=== PATIENT | male | born 1975 | race Caucasian/White ===

== ENCOUNTER → 2018-11-07 08:03 | Outpatient (CLI) | payer BC, SELFPAY ==
[2018-11-07 07:54] VITALS: BMI 31.6
--- NOTE | 2018-11-07 08:06 | RAD_ITS ---
STUDY: X-RAY - RIGHT HAND REASON FOR EXAM: Male, 43 years old. Nail puncture at base of thumb. Soft tissue swelling. TECHNIQUE: 3 view(s) of the hand. COMPARISON: None. FINDINGS: Normal radiocarpal articulation. Normal distal radioulnar joint. Normal visualized carpal bones. Normal carpal articulations Normal carpometacarpal articulation of the thumb. Normal second through fifth carpometacarpal joints. Normal metacarpi. Normal metacarpophalangeal joint of the thumb. Normal interphalangeal joint of the thumb. Normal proximal and distal phalanges of the thumb. Normal metacarpophalangeal joints of the second through fifth fingers. Normal proximal and distal interphalangeal joints of the second through fifth fingers. Normal phalanges of the second through fifth fingers. Tiny radio opacities are seen in the soft tissues of the thenar space of the thumb just lateral to the first metacarpal head. These may represent tiny foreign bodies. RAD/Hand Min 3 Views IMPRESSION: Tiny radiopacity seen in the soft tissues overlying the ulnar aspect of the head of the first metacarpal. Electronically Signed: Franc Navarrete, at 8:49 EDT , Service support ,
== END ==
PROVIDERS: Family Provider Internal Medicine; PCP Internal Medicine; Referring Provider Physician Assistant; Visit Provider Physician Assistant
DX: S61.431A Puncture wound without foreign body of right hand, initial encounter (principal)
CPT/HCPCS: 73130

== ENCOUNTER 2024-02-04 19:57 | Emergency (ER) | payer BC, SELFPAY ==
[2024-02-04 19:58] VITALS: BP 134/91; PULSE 53; RESP 16; TEMP 37.2; O2SAT 97; BMI 29.2
--- NOTE | 2024-02-04 21:08 | ED.VIS.LOWEX ---
HPI History of Present Illness Chief Complaint: Wound Informant: patient Narrative Narrative: Patient is a 48-year-old male presenting with pain and swelling of his left anterior chan. He sustained an abrasion there yesterday but is not entirely sure why he has swelling of his left chan tonight. He just noticed pain there and looked down today and saw that was swollen. He notes that he was doing a lot of yard work yesterday but was just on the tractor today. He is not sure what his last tetanus was. Patient does have a history of varicose veins of his lower legs. He does not remember any direct trauma to his leg. He notes that his father did of blood clot in his leg that broke off and went to his heart. Patient himself denies any history of DVT or PE. No other complaints or concerns reported at this time. Does not take any medicine on a daily basis. Did not take any for pain prior to arrival. Tetanus Immunization: Unknown [facility] Medical History Back pain Chest pain Headache Home Medications ?Medication ?Instructions ?Recorded ?Last Taken ?Type ibuprofen 200 mg tablet 200 mg PO ONCE PRN 12/07/23 Unknown History Allergy/AdvReac Type Severity Reaction Status Date / Time No Known Allergies Allergy Verified 02/04/24 20:01 Family History Grandfather Cancer Other Heart disease Social History household members: spouse Smoking Status: Never smoker alcohol intake: never ROS ROS ED Constitutional Constitutional ED: Denies chills or fever(s) Cardiovascular Cardiovascular: Denies chest pain Respiratory/Chest Respiratory/Chest: Denies dyspnea Musculoskeletal Musculoskeletal: Reports other Details: Left chan pain Integumentary Reports Abrasions and other Details: Swelling of the left chan Neurologic Neurologic: Denies paresthesias or weakness Hematologic/Lymphatic Hematologic/Lymphatic: Denies easy bleeding or easy bruising EXAM Physical Exam Const Vital Signs: 02/04/24 19:58 02/04/24 21:20 Temperature 98.9 F 97.6 F L Temperature Source Temporal Pulse Rate 53 L 52 L Respiratory Rate 16 18 Blood Pressure 134/91 H 133/85 H Blood Pressure Mean 105 101 Pulse Ox 97 95 Oxygen Delivery Method Room Air Positive well nourished and well developed General Appearance ED: well developed and NAD HEENT normocephalic and atraumatic Resp normal respiratory effort Cardio regular rate and regular rhythm Extremity normal to inspection and full ROM Extremity Narrative: Patient has nonpulsatile area of swelling over the left anterior chan most consistent with a hematoma. No overlying erythema. There is to overlying linear superficial abrasions that are not actively bleeding. Patient does have varicose veins of the bilateral lower legs. Neuro oriented x3 Sensorium / Orientation: alert Motor Exam: Negative for general weakness Skin Skin Narrative: 2 linear, parallel, superficial abrasions approximately 6 cm in length. No active bleeding. MDM MDM MDM Narrative Medical decision making narrative: Patient is for painful swelling over his left chan. He appears nontoxic in no acute distress. Physical exam is most consistent with a hematoma. He does have an overlying abrasion to the area but I do not think that is related to the swelling. Patient does have some prominent varicose veins it is possible that he somehow ruptured varicose vein superficially and that is what causing the hematoma given his limited trauma/lack of trauma reported. He is neuro vastly intact distally with good pulses. He is otherwise well-appearing. He does not have any systemic symptoms. Bedside ultrasound placed over the swelling and does not show any pulsatile blood flow. I did also check in his popliteal region and I do not appreciate any DVT. Patient is counseled that it would be very unlikely for him to have a DVT present with swelling in the anterior leg. Patient is counseled on hematoma care including RICE therapy. He is given referral for vascular surgery for his varicose veins. Given return precautions. Discharged home in stable condition. Testing considered but not performed?x-ray?no trauma, suspect this is soft tissue injury and I do not suspect underlying bony abnormality. Discharge Plan Triage Chief Complaint: Wound ED Provider: Vika Arceo Dx/Rx/DC Orders Clinical Impression: Hematoma, Abrasion, Varicose veins of both lower extremities Instructions: ED Hematoma, ED Varicose Veins Prescriptions: No Action ibuprofen 200 mg tablet 200 mg PO ONCE PRN Primary Care Provider: Care Physician,No Primary Referrals: Toribio Beth MD [Med Staff - Active Staff] - As Needed Care Physician,No Primary [Primary Care Provider] - Print Language: Upper Sorbian Disposition Disposition: Home, Self Care Discharge Date/Time: 02/04/24 21:24
[2024-02-04 21:20] VITALS: BP 133/85; PULSE 52; RESP 18; TEMP 36.4; O2SAT 95
[2024-02-04] MEDS: Diphth,Pertuss(Acell),Tet Vac 0.5 ML Vial IM (21:22)
== END 2024-02-04 21:24 | disposition home or self-care (01) ==
PROVIDERS: Emergency Provider Emergency Medicine; Visit Provider Emergency Medicine
DX: S80.12XA Contusion of left lower leg, initial encounter (principal); I83.93 Asymptomatic varicose veins of bilateral lower extremities; X58.XXXA Exposure to other specified factors, initial encounter; S80.812A Abrasion, left lower leg, initial encounter; Z23 Encounter for immunization
CPT/HCPCS: 90715; 99282